=== PATIENT | male | born 1960 | race Caucasian/White ===

== ENCOUNTER → 2022-01-11 | Outpatient (CLI) | payer BC, SELFPAY ==
--- NOTE | 2022-01-11 10:50 | KNEE_PTH ---
PATIENT: LISSETTE HINES LOC: [facility]#:[id number] AGE/SX: 61/M ROOM: RE01/11/[address]: Dr. Chandler Medrano MD : [id number] BED: DIS: 01/11/2022 SPEC #: [id number] RECD: 01/11/22 15:08 STATUS: RUIZ KENNY #: [id number] MISTY: 01/11/22 10:[address]: Chandler Medrano DEPT: SURGICAL PATHOLOGY RECD BY: Ayad Mathew ENTERED: 01/14/22 08:49 SP TYPE: TOTAL KNEE OTHR DR: No Primary Care Phys [facility] Tissues: Knee, NOS Procedures: Decalcification bone/plaque Surgery Specimen Level IV HEADER OPERATION: Right knee replacement PRE-OP DIAGNOSIS: Postraumatic arthritis, right knee TISSUE SUBMITTED: Sone and soft tissue, right knee MICROSCOPIC DIAGNOSIS Bone and soft tissue, right knee, total knee replacement/resection: Severe degenerative joint disease. Fibroadipose tissue, fibroconnective tissue and reactive synovial tissue. Crystals consistent with pseudogout. AM:elle 01/17/2022 MICROSCOPIC DESCRIPTION Slides are reviewed. GROSS DESCRIPTION Received is one container designated bone and soft tissue right knee. The specimen consists of multiple fragments of cole-yellow bone measuring in aggregate 11 x 12 x 5.0 cm. Also in the specimen container are multiple fragments of yellow-white soft tissue measuring in aggregate 5.5 x 1.0 x 1.0 cm. A number of bony fragments contain articular surfaces consistent with tibial plateau and femoral condyle and displaying prominent osteophyte formation, eburnation, and bone erosion. Pr Manager sections are submitted in two cassettes as follows: 1 - soft tissue, 2 - bone after decalcification. / DELONTE:ton 01/14/22 TC:5 CPT: 76925, 59224
== END | disposition home or self-care (01) ==
PROVIDERS: Referring Provider Orthopaedic Surgery; Visit Provider Orthopaedic Surgery
DX: M12.561 Traumatic arthropathy, right knee (principal)
CPT/HCPCS: 88305; 88311

== ENCOUNTER 2022-07-30 09:00 | Emergency (ER) | payer BC, SELFPAY ==
[2022-07-30 09:02] VITALS: BP 175/91; PULSE 75; RESP 18; TEMP 35.7; O2SAT 97; BMI 31.4
--- NOTE | 2022-07-30 10:08 | RAD_ITS ---
STUDY: X-RAY - LEFT HAND, ATTENTION THIRD FINGER REASON FOR EXAM: Male, 61 years old. Injury/Pain TECHNIQUE: 3 view(s) of the finger were obtained. COMPARISON: None. FINDINGS: Normal metacarpal head. Normal metacarpophalangeal joint. Normal proximal phalanx. Normal middle phalanx. Comminuted nondisplaced fracture of the tuft of the distal phalanx of the third digit with overlying soft tissue laceration. Normal proximal interphalangeal joint. Normal distal interphalangeal joint. RAD/Finger(s) Min 2 Views IMPRESSION: Nondisplaced comminuted fracture of the tuft of the distal phalanx of the third digit with overlying soft tissue laceration. Electronically Signed: Rich Bill MD at 10:38 EST ,
--- NOTE | 2022-07-30 10:57 | EDS_ITS ---
HPI History of Present Illness HPI Narrative: Patient presents with laceration to his left middle finger that occurred today. Patient states he got his finger caught between 2 rocks. Patient states he tried to pull his finger away when it was smashed. Patient states that when he pulled his finger away is when he suffered a laceration. The patient states his last tetanus was approximately 3 years ago. Patient denies any paresthesias or weakness. Patient denies any pain at the present time. Patient states the bleeding stopped after several minutes of pressure. Patient denies any other injuries. Chief Complaint: Laceration Informant: patient Occured/Mechanism Mechanism/Context: Yes crush Onset/Context/Timing Onset: Today Context: Sudden Onset Timing: Continuous Location: Left middle finger Worsened by: Nothing Relieved by: Nothing Associated Symptoms Associated Symptoms: Negative for Parasthesia, Weakness or Loss of Funtion Narrative Tetanus Immunization: <5 years [facility] Medical History (Updated 07/30/22 @ 11:[address] Robert Goddard DO) Biceps tendon rupture HTN (hypertension) Home Medications cephalexin 500 mg capsule 500 mg PO Q6 #40 CAPSULES 07/30/22 [Rx Last Taken Unknown] lisinopril 40 mg tablet mg 07/30/22 [History Last Taken Unknown] metoprolol succinate 100 mg tablet,extended release 24 hr mg PO 07/30/22 [History Last Taken Unknown] Allergy/AdvReac Type Severity Reaction Status Date / Time No Known Allergies Allergy Verified 07/30/22 09:03 Surgical History (Updated 07/30/22 @ 10:[address] Robert Goddard DO) History of total right knee replacement (TKR) Hx of arthroscopy of right knee Social History Smoking Status: Never smoker ROS ROS ED Constitutional Constitutional ED: Denies chills or fever(s) Eyes Eyes: Denies blurry vision or change in vision ENT ENT ED: Denies rhinorrhea or sore throat Cardiovascular Cardiovascular: Denies chest pain or palpitations Respiratory/Chest Respiratory/Chest: Denies cough or dyspnea Gastrointestinal Gastrointestinal: Denies nausea or vomiting Genitourinary Genitourinary ED: Denies dysuria or hematuria Musculoskeletal Musculoskeletal: Denies back pain or neck pain Integumentary Denies abscess or rash Neurologic Neurologic: Denies headache(s) or weakness Allergic/Immunologic Allergic/Immunologic ED: Denies mouth swelling or urticaria EXAM Physical Exam Const Vital Signs: 07/30/22 09:02 Temperature 96.2 F L Temperature Source Temporal Pulse Rate 75 Respiratory Rate 18 Blood Pressure 175/91 H Blood Pressure Mean 119 Pulse Ox 97 Oxygen Delivery Method Room Air Positive well nourished and well developed General Appearance ED: well developed and NAD HEENT Reports moist mucous membranes Neck full ROM Extremity Extremity Narrative: There is a 3 cm full-thickness curvilinear laceration of the distal phalanx of the left middle finger. There is moderate gapping of the wound margins. There is mild bleeding. There is no obvious deformity. There is a small subungual hematoma noted. Sensation was intact to light touch in all digits. Capillary refill was less than 2 seconds in all digits. There is full range of motion of the MP, PIP, and DIP joints of the left middle finger. Neuro oriented x3, CN's II-XII intact bilaterally, moves all extremities, no focal motor deficits and no sensory deficits noted Sensorium / Orientation: alert Motor Exam: strength 5/5 throughout Psych mental status grossly normal MDM MDM MDM Narrative Medical decision making narrative: Differential diagnosis includes laceration, open fracture, and contusion. X- rays of the left middle finger will be obtained to assess for fracture. Radiography Diagnostic Testing: Clinical Impression(s) from Imaging Studies Finger X-Ray 07/30/22 10:08 IMPRESSION: Nondisplaced comminuted fracture of the tuft of the distal phalanx of the third digit with overlying soft tissue laceration. Electronically Signed: Rich Bill MD at 10:38 EST , X-rays of the left index finger were obtained. There are 3 views. On my independent interpretation, there is comminuted fracture of the tuft of the distal phalanx. There is minimal displacement. Radiologist also interpreted the x-ray and agrees. Treatment and Re-Evaluation Narrative: Patient was given a dose of Ancef here. The wound was cleaned and irrigated with copious amounts of normal saline. The wound was anesthetized with 1% plain lidocaine via digital block. The nail plate was removed. The wound was closed with 4 simple interrupted #4-0 nylon and 3 simple interrupted #5-0 Vicryl sutures under sterile technique. The nail plate was replaced. Patient tolerated the procedure well. Bacitracin dressing was applied. Patient was instructed to keep the area clean and dry. Patient was instructed to follow-up with his primary care physician in 7 days for wound recheck and suture removal. Patient understood and was agreeable with the plan. All questions were answered. Procedures Lacerations Left middle finger: Length: 3 cm Depth: Sub Q Shape: Linear Prep: Sterile Conditions and Chlorhexadine Laceration repair: Digital block, Irrigated, Lidocaine, Skin sutures (4 simple interrupted #4-0 Vicryl) and Wound explored Irrigated (ml): 100 Comment: 3 simple erupted #5-0 Vicryl sutures were placed in the nailbed. 4 simple interrupted #4-0 nylon sutures were placed on the skin. The nail plate was replaced. Discharge Plan Triage Chief Complaint: Laceration ED Provider: Robert Goddard Dx/Rx/DC Orders Clinical Impression: Open fracture of distal phalanx of left middle finger, Laceration of left middle finger Instructions: ED Laceration, Hand: All Closures Prescriptions: New cephalexin [cephalexin] 500 mg capsule 500 mg PO Q6 Qty: 40 0RF No Action metoprolol succinate 100 mg tablet extended release 24 hr PO lisinopril 40 mg tablet Primary Care Provider: Dario Rene Referrals: Dario Rene DO [Primary Care Provider] - 7 Days for suture removal Disposition Disposition: Home, Self Care
[2022-07-30] MEDS: Lidocaine 1% (20 ml mdv) 20 ML Vial INFILT (11:12)
[2022-07-30] MEDS: Cefazolin 1 GM/50 ML BAG IV (11:12)
== END 2022-07-30 12:16 | disposition home or self-care (01) ==
PROVIDERS: Emergency Provider Emergency Medicine; PCP Family Medicine; Visit Provider Emergency Medicine
DX: S62.633B Displaced fracture of distal phalanx of left middle finger, initial encounter for open fracture (principal); I10 Essential (primary) hypertension; W23.0XXA Caught, crushed, jammed, or pinched between moving objects, initial encounter; Z79.899 Other long term (current) drug therapy
CPT/HCPCS: 12002; 73140; 96365; 99285; J7050; A4216